=== PATIENT | female | born 1995 | race Caucasian/White ===

== ENCOUNTER 2019-12-06 13:21 | Emergency (ER) | payer OTHER, SELFPAY ==
[2019-12-06 13:31] VITALS: BP 124/76; PULSE 81; RESP 16; TEMP 37.1; O2SAT 99
--- NOTE | 2019-12-06 14:08 | ED.URI ---
HPI - URI/Sore Throat General Chief Complaint: Upper Respiratory Infection Stated Complaint: Sore Throat Time Seen by Provider: 12/06/19 14:08 Source: patient, family and RN notes reviewed Mode of arrival: ambulatory Limitations: no limitations History of Present Illness HPI Narrative: 24-year-old female who presents to [facility] with complaints of sore throat, rhinorrhea and nasal congestion since Monday with ear pain that has resolved. Patient states that she does have a history of strep throat in the past with similar symptoms.Patient denies any shortness of breath, or any wheezing, respirations even and non labored. Patient has red swollen tonsils,uvula midline, is able to swallow without difficulty no trismus noted, voice is muffled sounding. MD elicited complaint: fever, sore throat, rhinorrhea and nasal congestion Pertinent past history: other (strep throat) Related Data Home Medications Medication Instructions Recorded Confirmed Implanon Control Implant 12/06/19 Allergies Allergy/AdvReac Type Severity Reaction Status Date / Time No Known Allergies Allergy Unknown Verified 07/24/19 14:57 Review of Systems Review of Systems: Narrative: CONSTITUTIONAL: positive fever, chills, or sweats. EYES: Denies visual changes, redness, or discharge. ENT: positive rhinorrhea, congestion, sore throat, no otalgia presently. CARDIOVASCULAR: Denies chest pain, palpitations, or edema. RESPIRATORY: positive cough no dyspnea. GASTROINTESTINAL: Denies abdominal pain, nausea, vomiting, or diarrhea. GENITOURINARY: Denies dysuria or hematuria. SKIN: Denies rash or itching. MUSCULOSKELETAL: Denies back pain, joint pain, or myalgia. NEUROLOGIC: Denies headache, numbness, or weakness. PSYCHIATRIC: Denies anxiety or depression. All systems reviewed & are unremarkable except as noted in HPI and below PMFSH Past Medical History Medical History (Updated 12/06/19 @ 14:20 by Haley Streeter NP) Strep pharyngitis Social History Social History (Updated 12/06/19 @ 16:40 by Haley Streeter NP) Smoking status: Never smoker Living arrangements: with family Gender identity (if verbalized by the patient): Female Comments At time of signature, agree with nursing past medical, social history. There is no relevant family history pertinent to the presenting complaint Exam Narrative: Exam Narrative: GENERAL: Well-appearing, well-nourished, and in no acute distress. HEAD: Normocephalic, atraumatic. EYES: PERRLA and EOMI. ENT: Nares red, clear rhinorrhea no epistaxis. Mucous membranes moist. TM's normal with good light reflex, throat red with tonsils enlarged, no lesions or exudate, voice muffled, painful swallowing. NECK: Supple.lymphadenopathy CHEST: Clear to auscultation. No respiratory distress.SAO2 99% on room air. HEART: Regular rate and rhythm. No murmur heard. Normal peripheral pulses. ABDOMEN: Soft, nontender, nondistended, normal active bowel sounds. EXTREMITIES: Normal range of motion. No edema. SKIN: Warm, dry, no rash. NEURO: No focal deficits. Alert and oriented x3. Course Vital Signs Vital signs: Vital Signs Temperature 37.1 C 12/06/19 13:31 Pulse Rate 81 12/06/19 13:31 Respiratory Rate 16 12/06/19 13:31 Blood Pressure 124/76 12/06/19 13:31 Pulse Oximetry 99 12/06/19 13:31 Temperature 37.1 C 12/06/19 13:31 Pulse Rate 81 12/06/19 13:31 Respiratory Rate 16 12/06/19 13:31 Blood Pressure 124/76 12/06/19 13:31 Pulse Oximetry 99 12/06/19 13:31 MDM - URI/Sore Throat Differential Diagnosis Differential diagnosis: Likely upper respiratory infection, sinusitis and pharyngitis Medical Records Attestation: I reviewed the patient's medical records. Lab Data Attestation: I reviewed the patient's lab results. Lab results narrative: Strep screen negative Labs: Strep Screen Presumptive Negative *(Reference Range: Negative)* Critical Care Time C
== END 2019-12-06 14:25 | disposition home or self-care (01) ==
PROVIDERS: Emergency Provider Registered Nurse; PCP Nurse Practitioner Family
DX: J03.90 Acute tonsillitis, unspecified (principal); J06.9 Acute upper respiratory infection, unspecified
CPT/HCPCS: 87081; 87880; 99213; G0463

== ENCOUNTER 2020-04-30 14:36 | Emergency (ER) | payer OTHER, SELFPAY ==
[2020-04-30 14:46] VITALS: BP 123/74; PULSE 105; RESP 16; TEMP 37.2; O2SAT 98
--- NOTE | 2020-04-30 14:48 | ED.GENADULT ---
HPI - General Adult General Chief complaint: Upper Respiratory Infection Stated complaint: Sore throat Time Seen by Provider: 04/30/20 14:48 Source: patient Mode of arrival: ambulatory Limitations: no limitations History of Present Illness HPI narrative: 24-year-old female patient presents to the [facility] with complaints of sore throat for the past 3 days. Patient states that she noticed some white spots in the back of her throat today. Denies any fevers, runny nose or coughing, chest pain or shortness of breath. Patient states she has had a little discomfort to the right ear. Related Data Home Medications Medication Instructions Recorded Confirmed Iud 04/30/20 Allergies Allergy/AdvReac Type Severity Reaction Status Date / Time No Known Allergies Allergy Unknown Verified 07/24/19 14:57 Review of Systems Review of Systems: Narrative: CONSTITUTIONAL: Denies fever, chills, or sweats. EYES: Denies visual changes, redness, or discharge. ENT: Denies rhinorrhea, congestion, positive sore throat, and right otalgia. CARDIOVASCULAR: Denies chest pain, palpitations, or edema. RESPIRATORY: Denies cough or dyspnea. GASTROINTESTINAL: Denies abdominal pain, nausea, vomiting, or diarrhea. GENITOURINARY: Denies dysuria or hematuria. SKIN: Denies rash or itching. MUSCULOSKELETAL: Denies back pain, joint pain, or myalgia. NEUROLOGIC: Denies headache, numbness, or weakness. PSYCHIATRIC: Denies anxiety or depression. [facility] Past Medical History Medical History Strep pharyngitis Social History Social History Smoking status: Never smoker Gender identity (if verbalized by the patient): Female Comments At the time of my signature I agree with nursing past medical history, surgical, social, and family history. There is no relevant family history pertinent to the presenting complaint. Exam Narrative: Exam Narrative: GENERAL: Well-appearing, well-nourished, and in no acute distress. HEAD: Normocephalic, atraumatic. No tenderness noted to frontal maxillary sinuses on palpation EYES: PERRLA and EOMI. ENT: Nares clear, no rhinorrhea or epistaxis. Mucous membranes moist. Posterior pharynx with 3+ tonsil enlargement on the right side 1+ tonsil enlargement on the left. Patient does have bilateral white exudates noted on bilateral sides. Erythema noted to bilateral sides. Bilateral TMs are clear with no erythema or foreign bodies in the canal. NECK: Supple. No lymphadenopathy CHEST: Clear to auscultation. No respiratory distress. HEART: Regular rate and rhythm. No murmur heard. Normal peripheral pulses. ABDOMEN: Soft, nontender, nondistended, normal active bowel sounds. EXTREMITIES: Normal range of motion. No edema. SKIN: Warm, dry, no rash. NEURO: No focal deficits. Alert and oriented x3. Course Vital Signs Vital signs: Vital Signs Temperature 37.2 C 04/30/20 14:46 Pulse Rate 105 H 04/30/20 14:46 Respiratory Rate 16 04/30/20 14:46 Blood Pressure 123/74 04/30/20 14:46 Pulse Oximetry 98 04/30/20 14:46 Temperature 37.2 C 04/30/20 14:46 Pulse Rate 105 H 04/30/20 14:46 Respiratory Rate 16 04/30/20 14:46 Blood Pressure 123/74 04/30/20 14:46 Pulse Oximetry 98 04/30/20 14:46 Vital signs reviewed. Medical Decision Making Differential Diagnosis Differential Diagnosis: Differential diagnosis: Viral pharyngitis, pharyngitis, group A strep, infectious mononucleosis, gonococcal pharyngitis, exudative pharyngitis, oral candidiasis. Chronic allergies, postnasal drip, GERD, abscess formation, but glottitis, retropharyngeal abscess formation, or airway obstruction. Discussed with patient that her strep test today is negative however because she has a lot of exudates and swelling especially on the right side we will go ahead and prescribe her an antibiotic just to cover any type of bacteria that cou
== END 2020-04-30 15:12 | disposition home or self-care (01) ==
PROVIDERS: Emergency Provider Nurse Practitioner Family
DX: J03.90 Acute tonsillitis, unspecified (principal)
CPT/HCPCS: 87081; 87880; 99213; G0463

== ENCOUNTER 2021-07-02 11:56 | Emergency (ER) | payer OTHER, SELFPAY ==
[2021-07-02 12:11] VITALS: BP 117/69; PULSE 110; RESP 18; TEMP 36.2; O2SAT 99
[2021-07-02 12:54] LABS: Basophils Absolute Auto 0.1 K/mm3 (0.0-0.1); Basophils Percent Auto 0.4 % (0.2-1.2); Eosinophils Absolute Auto 0.1 K/mm3 (0-0.3); Hematocrit 40.6 % (37.0-47.0); Hemoglobin 12.7 g/dL (12.0-15.0); Immature Granulocyte Absolute 0.05 K/mm3 (0.00-0.031); Immature Granulocyte Percent A 0.4 % (0-0.5); Lymphocytes Absolute Auto 3.15 K/mm3 (0.9-3.2); Lymphocytes Percent Auto 28.2 % (18.3-44.2); Mean Corpuscular HGB Conc 31.3 g/dl (32-36); Mean Corpuscular Hemoglobin 26.6 pg (26-34); Mean Corpuscular Volume 85.1 fl (80-100); Mean Platelet Volume 10.5 fl (7.4-10.4); Monocytes Absolute Auto 0.7 K/mm3 (0.1-0.6); Monocytes Percent Auto 6.3 % (2.6-8.5); Neutrophils Absolute Auto 7.1 K/mm3 (1.3-6.7); Neutrophils Percent Auto 63.7 % (45.5-73.1); Platelet Count Result 302 k/mm3 (150-375); Red Blood Count 4.77 M/mm3 (4.2-5.4); Red Cell Distribution Width 15.1 % (11.5-14.5); White Blood Count 11.2 K/mm3 (4.5-10.0)
[2021-07-02 13:24] LABS: Beta HCG Quantitative < 2.39 mIU/ML
--- NOTE | 2021-07-02 15:59 | PC.NURSE ---
no answer x1 at [facility]
== END 2021-07-02 15:59 | disposition left against medical advice (07) ==
PROVIDERS: Emergency Provider Emergency Medicine
DX: O26.851 Spotting complicating pregnancy, first trimester (principal); Z3A.01 Less than 8 weeks gestation of pregnancy
CPT/HCPCS: 36415; 84702; 85025; 85461; 99199

== ENCOUNTER 2021-12-31 08:37 | Emergency (ER) | payer OTHER, SELFPAY ==
--- NOTE | ~2021-12-31 | US_ITS ---
EXAMINATION: US OB <=14 wk fetus w TV DATE: 12/31/2021 10:29 INDICATION: Right adnexal pain. TECHNIQUE: Real-time transabdominal and transvaginal pelvic ultrasound was performed. COMPARISON: None. FINDINGS: TRANSABDOMINAL ULTRASOUND: The uterus measures 8.7 x 5.6 x 5.2 cm. TRANSVAGINAL ULTRASOUND: There is a cyst with mean diameter of 4 mm in the endometrial complex with i ntradecidual sign. If this finding is a gestational sac, and correlates with an estimated gestational age of 5 weeks and 1 day +/- 3 days. No yolk sac or pole is identified. The right ovary measu res 1.9 x 1.4 x 1.4 cm. The left ovary measures 2.9 x 2.0 x 1.6 cm. There is trace free fluid in the pelvis. IMPRESSION: 1. Cyst in the endometrial complex that is most likely a gestational sac with estimated date of deli very of 09/01/2022. Spontaneous and ectopic are not excluded. Serial beta-hCGs are recommended. Reviewed, dictated and finalized at location A. LEAD IMPRESSION: 1. Cyst in the endometrial complex that is most likely a gestational sac with estimated date of delivery of 09/01/2022. Spontaneous and ectopic preg bart are not excluded. Serial beta-hCGs are recommended.
--- NOTE | ~2021-12-31 | US_ITS ---
EXAMINATION: US right upper quadrant EXAM DATE: 12/31/2021 11:11 INDICATION: RUQ pain . TECHNIQUE: Multiple grayscale and Doppler images of the abdomen right upper quadrant were obtained (b y a technologist who performed the scan) and subsequently reviewed. There is no prior study for eran mtz. FINDINGS: The pancreatic head and body are normal in appearance. The pancreatic tail is not visualized. The l iver has normal echogenicity and contour. There are no focal liver lesions identified. There is no evidence of intrahepatic biliary duct dilation. Portal venous flow was seen in the hepatopedal, nor mal direction and has normal Doppler waveform. No right-sided hydronephrosis. Common bile duct measures 3 mm, which is normal. Mildly thickened gallbladder wall measurement at 4 m m. Differential diagnosis includes interstitial edema, chronic liver disease, acute or chronic cholec ystitis. No sonographic evidence of pericholecystic fluid. There is cholelithiasis. Technologist performing exam reports patient did not demonstrate sonographic Radford's sign. Please note that this sign is less reliable in patients who have received pain medication. IMPRESSION: Cholelithiasis. Nonspecific gallbladder wall thickening, without sonographic Radford sign demonstrated. Clinical correlation, consider HIDA scan if indicated. Reviewed, dictated and finalized at location A. PERFORMANCE ENGINEER IMPRESSION: Cholelithiasis. Nonspecific gallbladder wall thickening, without so nographic Radford sign demonstrated. Clinical correlation, consider HIDA scan if indicated.
[2021-12-31 09:00] VITALS: BP 111/84; PULSE 83; RESP 18; TEMP 36.4; O2SAT 100
[2021-12-31 10:09] LABS: Basophils Percent Auto 0.3 % (0.2-1.2); Eosinophils Absolute Auto 0.1 K/mm3 (0-0.3); Eosinophils Percent Auto 1.2 % (0-4.4); Hematocrit 38.9 % (37.0-47.0); Hemoglobin 12.3 g/dL (12.0-15.0); Immature Granulocyte Absolute 0.05 K/mm3 (0.00-0.031); Immature Granulocyte Percent A 0.5 % (0-0.5); Lymphocytes Absolute Auto 2.54 K/mm3 (0.9-3.2); Lymphocytes Percent Auto 27.8 % (18.3-44.2); Mean Corpuscular HGB Conc 31.6 g/dl (32-36); Mean Corpuscular Hemoglobin 26.5 pg (26-34); Mean Corpuscular Volume 83.8 fl (80-100); Mean Platelet Volume 10.4 fl (7.4-10.4); Monocytes Absolute Auto 0.7 K/mm3 (0.1-0.6); Monocytes Percent Auto 7.4 % (2.6-8.5); Neutrophils Absolute Auto 5.7 K/mm3 (1.3-6.7); Neutrophils Percent Auto 62.8 % (45.5-73.1); Platelet Count Result 290 k/mm3 (150-375); Red Blood Count 4.64 M/mm3 (4.2-5.4); White Blood Count 9.1 K/mm3 (4.5-10.0)
[2021-12-31 10:18] LABS: Prothrombin Time 12.5 Seconds (11.1-14.7)
[2021-12-31 10:19] LABS: Partial Thromboplastin Time 26.9 SECONDS (22.3-36.8)
[2021-12-31 10:23] LABS: Alanine Aminotransferase 20 U/L (4-35); Albumin Level 4.2 g/dL (3.5-5.1); Alkaline Phosphatase 85 U/L (38-126); Anion Gap 6 mmol/L (8-16); Aspartate Amino Transferase 25 U/L (14-36); Bilirubin,Total 0.4 mg/dL (0.2-1.3); Blood Urea Nitrogen 7 mg/dL (7-17); Calcium 8.8 mg/dL (8.4-10.2); Carbon Dioxide 27 mmol/L (22-30); Chloride 104 mmol/L (98-107); Estimated CRCL calculation 160 ml/min; Estimated Glomerular Filt Rate > 60; Glucose 94 mg/dL (65-110); Potassium 3.8 mmol/L (3.4-5.0); Sodium 137 mmol/L (137-145)
[2021-12-31 10:47] LABS: Add Urine Microscopic? YES; Appearance Urine Clear (Clear); Bilirubin Urine Negative (Negative); Blood Urine Negative (Negative); Color Urine Yellow (Yellow); Glucose Urine UA Negative (Negative); Ketones Urine Negative (Negative); Leukocyte Esterase Ur 1+ LEU/UL (Negative); Mucus Urine Rare /lpf; Nitrate Urine Negative (Negative); Protein Urine Negative (Negative); RBC Urine 0-2 /hpf (0-2); Specific Grav Ur 1.019 (1.001-1.035); Squamous Epithelial Cell Urine Occasional /hpf (Few); Urobilinogen Urine Negative mg/dL (<2.0); WBC Urine 0-3 /hpf
[2021-12-31 12:38] VITALS: BP 127/86; PULSE 63; RESP 16; O2SAT 94
--- NOTE | 2021-12-31 12:56 | ED.GENADULT ---
HPI - General Adult General Chief complaint: Back Pain/Injury Stated complaint: rib and back pain Time Seen by Provider: 12/31/21 09:41 History of Present Illness HPI narrative: Patient is a 26-year-old female who presents ER with abdominal pain. Right-sided in her upper abdomen. Moved to her right shoulder. Began this morning and is more intense than typical. She has been having intermittently over the last couple weeks. Unsure if it so she was eating. No fevers or chills or sweats. No vomiting. Incidentally patient found to be upon arrival here. She is a SAB 3. LMP October 2021. Unsure of actual dates. She sees Dr. Galindo who has recently left the area. No vaginal bleeding or discharge. Related Data Home Medications Medication Instructions Recorded Confirmed metformin mg 12/31/21 omeprazole 12/31/21 phentermine mg 12/31/21 Allergies Allergy/AdvReac Type Severity Reaction Status Date / Time No Known Allergies Allergy Unknown Verified 07/24/19 14:57 Review of Systems Review of Systems: All systems reviewed & are unremarkable except as noted in HPI and below Constitutional: Constitutional: Denies chills, Denies fever(s) and Denies weakness ENT: Denies nasal congestion and Denies sore throat Cardiovascular: Cardiovascular: Denies chest pain, Denies rapid heart rate and Denies radiating jaw, neck or arm pain Respiratory: Respiratory: Denies cough and Denies dyspnea Gastrointestinal: Gastrointestinal: Reports abdominal pain, Denies constipation, Denies diarrhea, Reports nausea and Denies vomiting Genitourinary: Genitourinary: Denies abnormal vaginal bleeding, Denies hematuria, Denies nocturia, Denies dysuria, Denies flank pain and Denies vaginal discharge PMFSH Past Medical History Medical History (Updated 12/31/21 @ 13:05 by Chip Perkins MD) GERD (gastroesophageal reflux disease) Strep pharyngitis Surgical History Surgical History (Updated 12/31/21 @ 13:05 by Chip Perkins MD) No pertinent past surgical history Social History Social History Smoking status: Never smoker Gender identity (if verbalized by the patient): Female Exam Narrative: GENERAL: Well-appearing, well-nourished, and in no acute distress. HEAD: Normocephalic, atraumatic. EYES: PERRL and EOMI. ENT: Mucous membranes moist. CHEST: Clear to auscultation. No respiratory distress. HEART: Regular rate and rhythm. Normal peripheral pulses. ABDOMEN: Soft, tender palpation right lower quadrant without guarding, nondistended. EXTREMITIES: Normal range of motion. No edema. SKIN: Warm, dry, no rash. NEURO: Alert and oriented x3. Course Course Emergency Course: Patient informed of . Appears to be an IUP. Contacted Dr. Kaplan who is on-call for Dr. Medrano's office. Recommends close follow-up. Patient educated about low-fat diet in terms of her cholelithiasis. Patient has no right upper quadrant tenderness or guarding. Vital Signs Vital signs: Vital Signs Temperature 97.6 F 12/31/21 09:00 Pulse Rate 83 12/31/21 09:00 Respiratory Rate 18 12/31/21 09:00 Blood Pressure 111/84 12/31/21 09:00 Pulse Oximetry 100 12/31/21 09:00 Temperature 97.6 F 12/31/21 09:00 Pulse Rate 63 12/31/21 12:38 Respiratory Rate 16 12/31/21 12:38 Blood Pressure 127/86 12/31/21 12:38 Pulse Oximetry 94 12/31/21 12:38 Medical Decision Making Vital Signs Vital Signs: Vital Signs Temperature 97.6 F 12/31/21 09:00 Pulse Rate 83 12/31/21 09:00 Respiratory Rate 18 12/31/21 09:00 Blood Pressure 111/84 12/31/21 09:00 Pulse Oximetry 100 12/31/21 09:00 Temperature 97.6 F 12/31/21 09:00 Pulse Rate 63 12/31/21 12:38 Respiratory Rate 16 12/31/21 12:38 Blood Pressure 127/86 12/31/21 12:38 Pulse Oximetry 94 12/31/21 12:38 Lab Data Result diagrams: 12/31/21 10:03 12/31/21
== END 2021-12-31 13:39 | disposition home or self-care (01) ==
PROVIDERS: Emergency Provider Emergency Medicine; PCP Physician Assistant
DX: O99.611 Diseases of the digestive system complicating pregnancy, first trimester (principal); K80.20 Calculus of gallbladder without cholecystitis without obstruction; K21.9 Gastro-esophageal reflux disease without esophagitis; Z3A.00 Weeks of gestation of pregnancy not specified
CPT/HCPCS: 36415; 76705; 76801; 76817; 80053; 81001; 81025; 84702; 85025; 85610; 85730; 99284

== ENCOUNTER 2022-06-02 09:59 | Outpatient (CLI) | payer OTHER, SELFPAY ==
[2022-06-02 11:32] LABS: Basophils Percent Auto 0.3 % (0.2-1.2); Eosinophils Absolute Auto 0.1 K/mm3 (0-0.3); Eosinophils Percent Auto 0.4 % (0-4.4); Hematocrit 39.1 % (37.0-47.0); Hemoglobin 12.6 g/dL (12.0-15.0); Immature Granulocyte Absolute 0.06 K/mm3 (0.00-0.031); Immature Granulocyte Percent A 0.5 % (0-0.5); Lymphocytes Absolute Auto 2.63 K/mm3 (0.9-3.2); Lymphocytes Percent Auto 22.6 % (18.3-44.2); Mean Corpuscular HGB Conc 32.2 g/dl (32-36); Mean Corpuscular Hemoglobin 26.8 pg (26-34); Mean Corpuscular Volume 83.2 fl (80-100); Mean Platelet Volume 10.6 fl (7.4-10.4); Monocytes Absolute Auto 0.6 K/mm3 (0.1-0.6); Monocytes Percent Auto 5.3 % (2.6-8.5); Neutrophils Absolute Auto 8.3 K/mm3 (1.3-6.7); Neutrophils Percent Auto 70.9 % (45.5-73.1); Platelet Count Result 279 k/mm3 (150-375); White Blood Count 11.7 K/mm3 (4.5-10.0)
[2022-06-02 11:43] LABS: Glucose 1 Hour PP 50gm Dose 98 mg/dL
[2022-06-02 12:25] LABS: HIV 1/2 Ab P24 Ag Result Negative (Negative)
[2022-06-02 12:31] LABS: Hepatitis B Surface Antigen Negative (Negative); Rubella IgG Antibody 72.7 IU/ML
[2022-06-02 12:34] LABS: Rapid Plasma Reagin Non-Reactive (NonReactive)
== END 2022-06-02 10:00 | disposition home or self-care (01) ==
LOC: ANHLAB 10:02
PROVIDERS: PCP Physician Assistant; Visit Provider Obstetrics & Gynecology
DX: N94.89 Other specified conditions associated with female genital organs and menstrual cycle (principal)
CPT/HCPCS: 36415; 82947; 84702; 85025; 86592; 86644; 86703; 86747; 86762; 86787; 86850; 86900; 86901; 87086; 87340; G0432

== ENCOUNTER 2022-08-25 05:47 | Observation (INO) | payer OTHER, SELFPAY ==
[2022-08-25 06:16] VITALS: BP 112/71; PULSE 91
[2022-08-25 06:23] VITALS: BMI 34.1
--- NOTE | 2022-08-25 06:23 | OBADM ---
This patient, Nancy Millard, admitted to the OB room OB Post 116 for observation. Patient/family oriented to hospital policies and general routines including ID bracelet, bed and alarms, visiting hours, pain management, procedures, bathroom and other care routines, personal items, smoking policy, room service/diet, and visiting hours. Patient/Family are encouraged to report perceived risks to care and to ask questions if they do not understand what they are told or what they should do. Pt. presents with reports of pink spotting when she woke up at 0500 to use the bathroom. She states she did not see any bleeding after going to the bathroom after arrival on unit. Pt. also reports DFM, but that she is now feeling baby move since arriving in her room.
[2022-08-25 06:31] VITALS: BP 106/67; PULSE 91
[2022-08-25 06:46] VITALS: BP 109/69; PULSE 81
--- NOTE | 2022-08-25 06:47 | PC.NURSE ---
0645--Report to Dr. Altamirano, order to DC and have pt. keep appointment for Monday.
--- NOTE | 2022-08-25 07:52 | PM.OBTRLD ---
OB - Triage/Final Diagnosis Visit Information Date of evaluation: 08/25/22 Reason for evaluation: other (bleeding) Comments/Additional reasons for admission: I have assessed the risk for this patient, Nancy Millard, and determined that she would benefit from observation care. Evaluation Vital signs: Vital Signs - 24 hr 08/25/22 06:16 08/25/22 06:31 08/25/22 06:46 Pulse Rate 91 91 81 Blood Pressure 112/71 106/67 109/69
== END 2022-08-25 07:08 | disposition home or self-care (01) ==
PROVIDERS: Admitting Provider Student in an Organized Health Care Education/Training Program; PCP Physician Assistant; Visit Provider Student in an Organized Health Care Education/Training Program
DX: O46.8X3 Other antepartum hemorrhage, third trimester (principal); O36.8130 Decreased fetal movements, third trimester, not applicable or unspecified; Z3A.29 29 weeks gestation of pregnancy
CPT/HCPCS: G0378; G0379

== ENCOUNTER 2022-08-27 07:45 | Outpatient (CLI) | payer OTHER, SELFPAY ==
[2022-08-27 08:56] LABS: Basophils Percent Auto 0.2 % (0.2-1.2); Eosinophils Absolute Auto 0.1 K/mm3 (0-0.3); Eosinophils Percent Auto 0.6 % (0-4.4); Hematocrit 36.9 % (37.0-47.0); Hemoglobin 12.1 g/dL (12.0-15.0); Immature Granulocyte Absolute 0.12 K/mm3 (0.00-0.031); Lymphocytes Absolute Auto 2.31 K/mm3 (0.9-3.2); Lymphocytes Percent Auto 18.5 % (18.3-44.2); Mean Corpuscular HGB Conc 32.8 g/dl (32-36); Mean Corpuscular Hemoglobin 28.7 pg (26-34); Mean Corpuscular Volume 87.6 fl (80-100); Mean Platelet Volume 10.5 fl (7.4-10.4); Monocytes Absolute Auto 0.7 K/mm3 (0.1-0.6); Monocytes Percent Auto 5.9 % (2.6-8.5); Neutrophils Absolute Auto 9.2 K/mm3 (1.3-6.7); Neutrophils Percent Auto 73.8 % (45.5-73.1); Platelet Count Result 256 k/mm3 (150-375); Red Blood Count 4.21 M/mm3 (4.2-5.4); Red Cell Distribution Width 13.3 % (11.5-14.5); White Blood Count 12.5 K/mm3 (4.5-10.0)
[2022-08-27 09:11] LABS: Glucose 1 Hour PP 50gm Dose 113 mg/dL
[2022-08-27 09:52] LABS: HIV 1/2 Ab P24 Ag Result Negative (Negative)
== END 2022-08-27 07:46 | disposition home or self-care (01) ==
PROVIDERS: PCP Physician Assistant; Visit Provider Obstetrics & Gynecology
DX: Z34.90 Encounter for supervision of normal pregnancy, unspecified, unspecified trimester (principal); Z3A.00 Weeks of gestation of pregnancy not specified
CPT/HCPCS: 36415; 82947; 85025; 86703; G0432

== ENCOUNTER 2022-11-02 16:15 | Inpatient (IN) | payer OTHER, SELFPAY ==
[2022-11-02] VITALS (62 sets, daily range): BP systolic 71–201; BP diastolic 39–183; PULSE 55–148; RESP 16; TEMP 36.3–36.6; O2SAT 57–100; BMI 37.4
--- NOTE | 2022-11-02 16:38 | LDADM ---
This patient, Nancy Millard, was admitted to Labor/Delivery/Recovery 108 on 11/02/22 at 16:15. Plans for labor, pain management and were discussed with patient. Patient/family oriented to hospital policies and general routines including ID bracelet, bed and alarms, visiting hours, pain management, procedures, bathroom and other care routines, personal items, smoking policy, room service/diet and guest tray routines, infant security routines, and visiting hours. Patient/Family are encouraged to report perceived risks to care and to ask questions if they do not understand what they are told or what they should do. See OBIX for further documentation.
[2022-11-02 16:56] LABS: Basophils Absolute Auto 0.1 K/mm3 (0.0-0.1); Basophils Percent Auto 0.4 % (0.2-1.2); Eosinophils Absolute Auto 0.1 K/mm3 (0-0.3); Eosinophils Percent Auto 0.4 % (0-4.4); Hematocrit 35.5 % (37.0-47.0); Hemoglobin 11.6 g/dL (12.0-15.0); Immature Granulocyte Absolute 0.18 K/mm3 (0.00-0.031); Immature Granulocyte Percent A 0.8 % (0-0.5); Lymphocytes Absolute Auto 2.31 K/mm3 (0.9-3.2); Lymphocytes Percent Auto 10.7 % (18.3-44.2); Mean Corpuscular HGB Conc 32.7 g/dl (32-36); Mean Corpuscular Volume 82.6 fl (80-100); Mean Platelet Volume 10.8 fl (7.4-10.4); Monocytes Absolute Auto 1.5 K/mm3 (0.1-0.6); Monocytes Percent Auto 7.1 % (2.6-8.5); Neutrophils Absolute Auto 17.5 K/mm3 (1.3-6.7); Neutrophils Percent Auto 80.6 % (45.5-73.1); Platelet Count Result 285 k/mm3 (150-375); Red Cell Distribution Width 13.5 % (11.5-14.5); White Blood Count 21.7 K/mm3 (4.5-10.0)
[2022-11-02] MEDS: DINOPROSTONE 10 MG VAG INSERT VAGINAL (17:02)
--- NOTE | 2022-11-02 18:05 | WPDANESEPP ---
Anes - Eval Pre Procedure Procedure: Labor epidural Date/Time: 11/02/22 18:05 Pre Op Diagnosis: iol Patient Data Age: 27 Gender: F Height: 1.65 m Weight: 102 kg Last Vital Signs Pulse 100 11/02/22 18:00 BP 121/71 11/02/22 18:00 O2 Del Method Room Air 11/02/22 16:36 Allergies Allergy/AdvReac Type Severity Reaction Status Date / Time No Known Allergies Allergy Unknown Verified 11/02/22 16:43 Home Medications Medication Instructions Recorded Confirmed Type vitamins-iron fumarate 65 1 tablet PO DAILY 04/06/22 11/02/22 History mg iron-folic acid 1 mg tablet alprazolam 0.25 mg tablet (Xanax) 0.25 mg PO TID PRN anxiety #30 tabs 10/03/22 11/02/22 Rx Laboratory Tests 11/02/22 11/02/22 11/02/22 16:28 16:28 16:28 WBC 21.7 K/mm3 H K/mm3 (4.5-10.0) RBC 4.30 M/mm3 M/mm3 (4.2-5.4) Hgb 11.6 g/dL L g/dL (12.0-15.0) Hct 35.5 % L % (37.0-47.0) MCV 82.6 fl fl (80-100) MCH 27.0 pg pg (26-34) MCHC 32.7 g/dl g/dl (32-36) RDW 13.5 % % (11.5-14.5) Plt Count 285 k/mm3 k/mm3 (150-375) MPV 10.8 fl H fl (7.4-10.4) Immature Gran % (Auto) 0.8 % H % (0-0.5) Neut % (Auto) 80.6 % H % (45.5-73.1) Lymph % (Auto) 10.7 % L % (18.3-44.2) [place] % (Auto) 7.1 % % (2.6-8.5) Eos % (Auto) 0.4 % % (0-4.4) Baso % (Auto) 0.4 % % (0.2-1.2) Lymph # (Auto) 2.31 K/mm3 K/mm3 (0.9-3.2) [place] # (Auto) 1.5 K/mm3 H K/mm3 (0.1-0.6) Eos # (Auto) 0.1 K/mm3 K/mm3 (0-0.3) Baso # (Auto) 0.1 K/mm3 K/mm3 (0.0-0.1) Abs Immat Gran (auto) 0.18 K/mm3 H K/mm3 (0.00-0.031) Absolute Neuts (auto) 17.5 K/mm3 H K/mm3 (1.3-6.7) Absolute Nucleated RBC 0.0 K/mm3 K/mm3 (0.0-0.012) Nucleated RBC % 0.0 % % (0.0-0.2) RPR Pending Blood Type O Positive Antibody Screen Negative Patient hx anesthesia problems: none Family hx anesthesia problems: none Results Review: All pre-operative results and documents have been reviewed as part of the pre-operative evaluation. [facility], LAT[facility] Past Medical History Medical History (Updated 11/02/22 @ 18:08 by Brenda Salmon CRNA) Anxiety Bipolar 1 disorder Chlamydia Depression Depression Encounter for IUD insertion 03/18/20 Paragard insertion Encounter for IUD removal 03/25/21 Paragard removal GERD (gastroesophageal reflux disease) Marijuana use Nexplanon insertion 10/04/19 Nexplanon insertion Nexplanon removal 01/01/20 Nexplanon removal Strep pharyngitis Suppression of menstruation Surgical History Surgical History No pertinent past surgical history Family History Family History Mother No problems noted. Grandparent Breast cancer maternal grandmother Other Breast cancer maternal aunt Social History Social History Smoking status: Light tobacco smoker Second hand tobacco smoke exposure: Yes Smoking end date: 07/23/22 Alcohol intake: never Substance use: never Substance use type: marijuana Last use: 02/20/2022 Lack of Transportation: No Lack of Food: Never True Current Housing: I Have Housing Concerned About Future Housing: No Difficulty Paying Gas/Electric Bills: No Difficulty Paying for Meds: No Currently Unemployed: No Education: High School Diploma/GED Difficulty w/ Childcare or Family Care: No 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
[2022-11-02] MEDS: LACTATED RINGERS 1,000 ML 125 ML IV CONT ×2 (21:17→22:28)
[2022-11-02] MEDS: PHENYLEPHRINE 1,000 MCG/10 ML SYRINGE 100 MCG IV PUSH (22:05)
--- NOTE | 2022-11-02 23:17 | PM.OBPRVD ---
OB - Delivery Note Procedure Delivery date: 11/02/22 Procedure: Patient pushed for a spontaneous vaginal delivery. The fetus was delivered atraumatically and placed on the maternal abdomen. The cord was clamped and cut after 1 minute of life. The cord was double clamped and cut and a segment of cord was collected for cord gases. Cord blood was collected for blood type and Coomb's testing. The placenta delivered spontaneously and was noted to be intact. The perineum was inspected and there were no lacerations noted. The uterus was firm and good hemostasis was noted. The patient and fetus were stable in the delivery room. Delivery monitor: External FHT Route of delivery: Episiotomy description: None Laceration Description: None Specimen: No Quantitative Blood Loss (ml): 200 Anesthesia type: Epidural Disposition: Floor () Complications: No immediate complications [place] Baby Date of : 11/02/22 Time of : 23:04 Weeks of gestation at delivery: 39 gender: Male Weight (pounds): 6 Weight (ounces): 4 presentation: vertex Placenta delivery description: Spontaneous Cord Vessel Description: 3 Vessels score one minute: 8 score five minutes: 9 AMG Delivery Billing Delivery Delivery: Delivery Charge
[2022-11-03] VITALS (24 sets, daily range): BP systolic 109–132; BP diastolic 54–75; PULSE 83–121; RESP 16–18; TEMP 36.3–37.2; O2SAT 94–100
[2022-11-03] MEDS: OXYTOCIN 30 UNITS/NS 500 ML 30 UNITS/500 ML BAG 125 UNITS IV CONT (00:06)
[2022-11-03] MEDS: BENZOCAINE 20% AER SPR (*SP) 56 GM CAN 1 SPRAY TOPICAL (01:21)
[2022-11-03] MEDS: WITCH HAZEL 40 PADS 1 PAD TOPICAL (01:21)
--- NOTE | 2022-11-03 01:56 | OBPPTRN ---
Patient transferred to post room #281 via W/C. Support person present. Oriented to unit, room, information board, rooming in, admission packet and security measures. Patient verbalizes understanding.
[2022-11-03] MEDS: IBUPROFEN 600 MG TABLET PO ×3 (03:07→16:29)
[2022-11-03] MEDS: ACETAMINOPHEN 325 MG TABLET 650 MG PO ×2 (04:54→19:38)
[2022-11-03 05:20] LABS: Hematocrit 31.9 % (37.0-47.0); Hemoglobin 10.6 g/dL (12.0-15.0)
[2022-11-03] MEDS: MULTIVIT/MIN/PREN/FOL AC/IRON TABLET 1 TAB PO (08:51)
[2022-11-03] MEDS: DOCUSATE SODIUM 100 MG CAPSULE PO ×2 (08:51→16:29)
[2022-11-03 10:40] LABS: Rapid Plasma Reagin Non-Reactive (NonReactive)
--- NOTE | 2022-11-03 10:40 | PC.NURSE ---
Breast pump provided due to separation from infant. Instructions given on cleaning, care, usage, that there should be no pain, pumping schedule for milk production, collection, and storage of human milk. Patient was assessed for correct placement, flange size, to pump for comfort and nipple stretching/stimulation for adequate milk production every 3 hours (8 times in 24 hours) 1-2 times at night. Mother voiced understanding.
--- NOTE | 2022-11-03 12:30 | PC.NURSE ---
Epidural catheter removed with tip intact, band-aid applied.
--- NOTE | 2022-11-03 13:15 | WPDANLDPN2 ---
Anes-Prog Note L&D Date/Time: 11/03/22 13:15 Comfortable throughout: labor and delivery Neuraxial method: epidural Epidural/Spinal procedure site: clean & non-tender Neuro status: Neuro function grossly intact. Cardiovascular status: normal Respiratory status: normal Airway patency: baseline Mental status: baseline Post-Op hydration status: normal Vital Signs: Last Vital Signs Temp 36.5 C 11/03/22 11:58 Pulse 88 11/03/22 11:58 Resp 16 11/03/22 11:58 BP 114/67 11/03/22 11:58 Pulse Ox 97 11/03/22 11:58 O2 Del Method Room Air 11/03/22 02:20 Pain score (VAS): 11/01 I/O: Intake & Output 11/02/22 11/03/22 11/03/22 23:59 07:59 15:59 Intake Total 1000 300 Output Total 150 Balance 1000 -150 300 Post-procedural complaints: none Patient feedback: Patient satisfied with anesthetic care.
--- NOTE | 2022-11-03 15:22 | PM.OBDSVD ---
DS: Admitting Diagnosis Discharge Date 11/04/2022 Admitting Diagnosis OB - DS: Summary OB Procedures : None OB Procedures Intrapartum: Spontaneous Vag Delivery OB Procedures: : None Time Spent with Patient Time attestation: Total time spent providing and/or coordinating discharge services: DS: Data Data Completed and Pending Labs on day of discharge: Labs from last 24 hours 11/03/22 11/02/22 11/02/22 05:14 16:28 16:28 WBC RBC Hgb 10.6 L Hct 31.9 L MCV MCH MCHC RDW Plt Count MPV Immature Gran % (Auto) Neut % (Auto) Lymph % (Auto) [place] % (Auto) Eos % (Auto) Baso % (Auto) Lymph # (Auto) [place] # (Auto) Eos # (Auto) Baso # (Auto) Abs Immat Gran (auto) Absolute Neuts (auto) Absolute Nucleated RBC Nucleated RBC % RPR Non-reactive Blood Type O Positive Antibody Screen Negative 11/02/22 16:28 WBC 21.7 H RBC 4.30 Hgb 11.6 L Hct 35.5 L MCV 82.6 MCH 27.0 MCHC 32.7 RDW 13.5 Plt Count 285 MPV 10.8 H Immature Gran % (Auto) 0.8 H Neut % (Auto) 80.6 H Lymph % (Auto) 10.7 L [place] % (Auto) 7.1 Eos % (Auto) 0.4 Baso % (Auto) 0.4 Lymph # (Auto) 2.31 [place] # (Auto) 1.5 H Eos # (Auto) 0.1 Baso # (Auto) 0.1 Abs Immat Gran (auto) 0.18 H Absolute Neuts (auto) 17.5 H Absolute Nucleated RBC 0.0 Nucleated RBC % 0.0 RPR Blood Type Antibody Screen Discharge Plan Discharge Discharging Clinician: Randolph Medrano Patient Disposition: Home, Self-Care Activity: as tolerated Diet: as tolerated Patient Instructions: Antibiotic Form Stand Alone Forms: General Discharge Information Follow-up/Referrals: Randolph Medrano MD [Physician] - 3 Weeks Discharge Medications: New ibuprofen 600 mg Tablet 600 mg PO Q6H PRN (Reason: Cramping) Qty: 30 0RF Continued vit-iron fum-folic ac 65 mg iron- 1 mg tablet 1 tablet PO DAILY alprazolam [Xanax] 0.25 mg tablet 0.25 mg PO TID PRN (Reason: anxiety) Qty: 30 0RF Date of admission: 11/02/22 16:15 Primary Care Provider: Raul,Eden Carlos Admitting Provider: Randolph Medrano Attending physician on admission: Randolph Medrano Condition: Stable
--- NOTE | 2022-11-03 15:53 | PC.NURSE ---
[id number] Introductions were made, then consulted with patient to assess needs related to . Mother led the conversation with her?plans to feed?her infant, the?experience so far and is demonstrating pumping the left breast. Resources provided for inpatient and outpatient services with mom/baby guide. Mother voiced understanding of information and requests assistance. had spent sometime in Level 2 nursery with a pacifier with one breastfeed witness downstairs in the nursery. Mother describes the latch as pinchy . Mother works well with her with encouragement and education. Encouraged understanding of the benefits of skin to skin (demonstrating unwrapping and placing upright on her chest), stimulating with massage touch, changing positions to encourage wakefulness, how to watch for early feeding cues, responsive feeding, feeding on demand (aiming for 8-12 times in 24 hours, about every 2-3 hours), milk production, building/maintaining a milk supply, duration of feeding, signs of adequate intake/output and how to record on the feeding sheet. Reviewed positioning and ear, shoulder, hip alignment, supporting the breast to facilitate a deep latch, asymmetrical latch (off-center), leading with the chin with a big, open, wide gape and body close to mother. Repeated attempts were made related to infant latches shallow at times and causes mother some pain. latched optimally to the left breast in football position. Education given to mother of how to visualize suck/swallow ratios and listen for drinking at the breast. was able to maintain latch without discomfort to mother. Nipple care reviewed with optimal latch and good positioning. Reminding mother of comfort measures of healing with a warm and wet washcloth to rinse breast, then leave open to air-dry as needed. Reviewed good handwashing when or touching the breast/nipples to prevent infection. Mother decided to store the 3mls syringe filled colostrum in the refrigerator after dated and labeled. Resources used to facilitate learning were used with the tool, mom and baby guide. Mother voiced understanding of skin to skin, stimulating with massage touch, responsive feedings, hand expressed colostrum, talking to to encourage if it has been 2 -2.5 hours since the start of the last , to call if infant does not latch, or if there is discomfort with . Resources provided for inpatient/outpatient mom/baby guide. Mother voiced understanding of information, demonstrated learning and will call if there is a request for assistance. Reported to the primary RN. [id number] Mother breastfed for 30 minutes with no pain and no misshaped nipple. Multiple attempts were made to latch infant to the right breast using football and cross cradle. Infant latches sometimes with the tongue down. pulls the large tongue up and curls tongue to latch. Mother states that sometimes the latch feels pinchy and other times not so much. Discouraged pacifier use while teaching to latch to the breast. Watching, waiting and encouraging infant to open wide with tongue down for a effective latch. was unable to latch effectively to the right breast at this time. Encouraged practicing the benefits of skin to skin (demonstrating unwrapping and placing upright on her chest), stimulating with massage touch, changing positions to encourage wakefulness, how to watch for early feeding cues, responsive feeding, feeding on demand (aiming for 8-12 times in 24 hours, about every 2-3 hours), milk production, building/maintaining a milk supply, duration of feeding, signs of adequate intake/output, pumping consistently if there's no effective latching and how to record on the feeding sheet. Mother voiced understanding the information, to call out if infant doesn't latch or if the latch is painful. Reported to the Primary RN.
[2022-11-04] MEDS: MULTIVIT/MIN/PREN/FOL AC/IRON TABLET 1 TAB PO (08:08)
[2022-11-04] MEDS: DOCUSATE SODIUM 100 MG CAPSULE PO (08:08)
[2022-11-04] MEDS: IBUPROFEN 600 MG TABLET PO (08:08)
[2022-11-04 08:30] VITALS: BP 106/62; PULSE 84; RESP 18; TEMP 36.4; O2SAT 100
[2022-11-04] MEDS: ACETAMINOPHEN 325 MG TABLET 650 MG PO (14:24)
--- NOTE | 2022-11-04 14:29 | PC.NURSE ---
[id number] Consulted with patient regarding her desire of how she wants to feed her . Primary RN reported mother bottle fed last night with no pumping. Reviewed consistent pumping for milk production pumping 8 times in 24 hours with 1-2 pumping sessions at night. consult was offered for practicing today if she requests. Mother led the conversation with her experience and at this time she will pump and feed. Mother is feeding appropriately for growth of and understands stimulating infant to eat if needed. Infant has had appropriate feedings in the last 24 hours meets the outcomes for weight, output and jaundice at this time. Mother states she is confident to continue to feed her infant at home, when to call for assistance and denies any additional assistance or education at this time. Reinforced understanding of milk production, transition of milk, signs of adequate intake, transition of stool, prevention/relief of engorgement, responsive watching for feeding cues, stimulating to breastfeed/feed 3 hours after the start of the last feeding (pumping breast if doesn't breastfeed for milk production), community resources, medication information reviewed per [facility] and when to call a provider using the resource of the mom and baby guide. Mother voiced understanding of the education shared.
--- NOTE | 2022-11-04 17:36 | PC.NURSE ---
1600 Patient was given the opportunity to view the discharge video Mother & Baby Care, The First Two Weeks and to ask questions. Patient declined viewing the video and has been given the mother/baby guide for home reference. Stated she will view it at home.
== END 2022-11-04 17:25 | disposition home or self-care (01) | DRG 560 ==
LOC: ANHLDR 16:23 → ANHOB2 11-03 02:00
PROVIDERS: Student in an Organized Health Care Education/Training Program; Admitting Provider Obstetrics & Gynecology; PCP Physician Assistant; Visit Provider Obstetrics & Gynecology
DX: O62.3 Precipitate labor (principal); O76 Abnormality in fetal heart rate and rhythm complicating labor and delivery; Z3A.39 39 weeks gestation of pregnancy; Z37.0 Single live birth
CPT/HCPCS: 36415; 85014; 85018; 85025; 86592; 86850; 86900; 86901; A9270; J2370; J2590; J2795; J7120

== ENCOUNTER 2023-01-02 07:22 | Outpatient (CLI) | payer OTHER, SELFPAY ==
[2023-01-02 08:21] LABS: Beta HCG Quantitative < 2.39 mIU/ML
== END 2023-01-02 07:23 | disposition home or self-care (01) ==
LOC: ANHLAB 07:23
PROVIDERS: PCP Physician Assistant; Visit Provider Student in an Organized Health Care Education/Training Program
DX: N92.6 Irregular menstruation, unspecified (principal)
CPT/HCPCS: 36415; 84702

== ENCOUNTER 2024-01-24 08:27 | Outpatient (CLI) | payer OTHER, SELFPAY ==
[2024-01-24 09:19] LABS: Alanine Aminotransferase 17 U/L (6-35); Albumin Level 4.2 g/dL (3.5-5.1); Alkaline Phosphatase 79 U/L (38-126); Amylase 65 U/L (30-110); Aspartate Amino Transferase 33 U/L (14-36); Bilirubin,Total 0.7 mg/dL (0.2-1.3); Lipase 26 U/L (23-300)
== END 2024-01-24 08:28 | disposition home or self-care (01) ==
PROVIDERS: PCP Physician Assistant; Visit Provider Surgery
DX: Z01.818 Encounter for other preprocedural examination (principal); K80.20 Calculus of gallbladder without cholecystitis without obstruction
CPT/HCPCS: 36415; 80076; 82150; 83690

== ENCOUNTER 2024-01-26 01:45 | Day surgery (SDC) | payer OTHER, SELFPAY ==
[2024-01-17 10:22] VITALS: BMI 29.9
--- NOTE | 2024-01-17 10:26 | PC.NURSE ---
Report to the Outpatient Waiting Room, entrance under the green pavilion located off [facility], at time 11:00 on date 01/26/24. Planned Procedure Time: 1:00. Time changes happen often and if your time is changed the preop area will call you the afternoon before. - You and your visitor will be asked to self-screen and do not enter if you have any COVID symptoms. - A mask is optional within the hospital at this time. Patients may have clear liquids (water, carbonated beverages, clear teas, apple juice) until 3 hours prior to surgery with a maximum of 20 ounces. - No food from midnight until time of surgery Take the following medications with a SIP of water the morning of surgery: NONE DO NOT STOP ANY OF YOUR OTHER PRESCRIPTION MEDICATIONS PRIOR TO SURGERY ?EXCEPT THE FOLLOWING Medications to discontinue per physician: N/A Date to take last dose: N/A Please no make-up, nail thai, hairspray, perfume, deodorant, or body powder the day of surgery. No jewelry (including any body piercings) or valuables the day of surgery, leave them at home. Please take a shower or bath the night before, or the morning of, surgery with an antibacterial soap. Wear comfortable, loose fitting clothing. - Jewelry must be removed prior to entering the operating room. Rings and piercings that are not removed may be cut off. - The hospital will not accept responsibility for valuables. - Please leave all valuables, including medications, at home the day of surgery. If you are going home after surgery, a licensed paratransit driver must drive you home. - NO public transportation without another adult if you receive anesthesia. - We recommend that an adult stay with you for 24 hours following discharge. - We also recommend that you do not drive, make important decision, drink alcoholic beverages, or take any drugs that were not prescribed by your health care provider for at least 24 hours after your discharge time. Follow any additional instructions given to you from your surgeon. If you or anyone in your household have experienced Covid symptoms in the past week, please notify your surgeon or the nurse liaison at the phone number below for possible testing. Telephone instructions given to BRAULIO BEVERLY and asked if any additional questions and then verbalized understanding. Patient advised to call surgeon office or pre surgery nurse liaison [phone] if any additional questions.
[2024-01-26] VITALS (10 sets, daily range): BP systolic 100–138; BP diastolic 49–91; PULSE 58–92; RESP 10–24; TEMP 36.2–36.9; O2SAT 98–100
[2024-01-26] MEDS: ACETAMINOPHEN 500 MG TABLET 1000 MG PO (10:09)
[2024-01-26] MEDS: LACTATED RINGERS 1,000 ML 30 ML IV CONT ×2 (10:40→12:52)
[2024-01-26] MEDS: KETOROLAC 15 MG/ML VIAL (*BKC) IV PUSH ×2 (10:41→15:02)
--- NOTE | 2024-01-26 11:03 | WPDANESEPPF ---
Anes - Initial Pre Proc Eval Procedure: Operation Date: 01/26/24 12:00 Proposed Procedures p Laparoscopic Cholecystectomy, Possible Open - Yamil Quintana DO Date/Time: 01/26/24 11:03 Surgeon: Yamil Quintana DO Pre Op Diagnosis: Sym Cholelithiasis Patient Data Age: 28 Gender: F Height: 1.65 m Weight: 79 kg Last Vital Signs Temp 98.4 F 01/26/24 10:19 Pulse 85 01/26/24 10:19 Resp 16 01/26/24 10:19 BP 117/62 01/26/24 10:19 Pulse Ox 100 01/26/24 10:19 O2 Del Method Room Air 01/26/24 10:19 Allergies Allergy/AdvReac Type Severity Reaction Status Date / Time No Known Allergies Allergy Unknown Verified 01/26/24 10:08 Home Medications Medication Instructions Recorded Confirmed Type etonogestrel 68 mg subdermal 1 implant subdermal ONCE 05/02/23 01/17/24 History implant (Nexplanon) Patient hx anesthesia problems: none Family hx anesthesia problems: none Results Review: All pre-operative results and documents have been reviewed as part of the pre-operative evaluation. [facility] Past Medical History Medical History Anxiety Bipolar 1 disorder Chlamydia Depression Depression Encounter for IUD insertion 03/18/20 Paragard insertion Encounter for IUD removal 03/25/21 Paragard removal GERD (gastroesophageal reflux disease) Irregular periods/menstrual cycles Marijuana use Nexplanon insertion 10/04/19 Nexplanon insertion Nexplanon insertion 01/03/2023 Nexplanon removal 01/01/20 Nexplanon removal Strep pharyngitis Suppression of menstruation Family History Family History Mother No problems noted. Grandparent Breast cancer maternal grandmother Other Breast cancer maternal aunt Social History Social History (Updated 07/06/23 @ 14:21 by Madelyn Nugent MA) Smoking status: Former smoker Tobacco type: cigarettes Second hand tobacco smoke exposure: Yes Smoking end date: 10/23/22 Additional smoking assessment comments: FORMER SOCIAL SMOKER Alcohol intake: current Drinks per week: 1 Substance use: current Substance use type: marijuana Last use: 02/20/2022 Lack of Transportation: No Lack of Food: Never True Current Housing: I Have Housing Concerned About Future Housing: No Difficulty Paying Gas/Electric Bills: No Difficulty Paying for Meds: No Currently Unemployed: No Education: High School Diploma/GED Difficulty w/ Childcare or Family Care: No Living arrangements: with family Occupation/Education: occupation 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 Gender identity (if verbalized by the patient): Female Sexual Orientation (if Verbalized by the Patient): Straight or Heterosexual Spiritual care concerns: No Anes - Eval Final PreProcedure Day of Procedure 01/26/24 11:03 Patient weight: overweight Heart: regular rate and rhythm Lungs: clear to auscultation Airway: Mallampati scale Neurological: alert and oriented Last oral intake: >/= 8 hours ASA classification: II Emergent: no Anesthetic plan: proceed Anesthesia type and monitoring: general and standard monitoring Results Review: All pre-operative results and documents have been reviewed as part of the pre-operative evaluation. Informed Consent: The patient's anesthetic plan and its attendant risks and benefits were discussed with the patient/family/POA. Questions were solicited and answers provided to the satisfaction of the patient/family/POA.
--- NOTE | 2024-01-26 11:43 | PM.IMHP ---
H&P: HPI History of Present Illness Date/Time: 01/26/24 11:43 Chief Complaint: symptomatic cholelithiasis Narrative: 28 yo woman presents for lap raghav. She reports not significant changes since last seen in office. Review of Systems Review of Systems: All systems reviewed & are unremarkable except as noted in HPI and below Constitutional: Constitutional: Denies chills, Denies fever(s), Denies headache(s) and Denies weight loss Eyes: Eyes: Denies change in vision ENT: Denies dizziness, Denies headache(s), Denies neck mass and Denies throat swelling Cardiovascular: Cardiovascular: Denies chest pain, Denies lightheadedness and Denies dyspnea Respiratory: Respiratory: Denies cough, Denies dyspnea and Denies wheezing Gastrointestinal: Gastrointestinal: Denies abdominal pain, Denies change in bowel habits, Denies nausea and Denies vomiting Genitourinary: Genitourinary: Denies hematuria and Denies dysuria Musculoskeletal: Musculoskeletal: Reports as per HPI Integumentary/Breasts: Skin/Breast: Reports as per HPI Neurologic: Denies dizziness and Denies headache(s) Allergic/Immunologic: Allergic/Immunologic: Denies throat swelling and Denies wheezing PMF Past Medical History Medical History Anxiety Bipolar 1 disorder Chlamydia Depression Depression Encounter for IUD insertion 03/18/20 Paragard insertion Encounter for IUD removal 03/25/21 Paragard removal GERD (gastroesophageal reflux disease) Irregular periods/menstrual cycles Marijuana use Nexplanon insertion 10/04/19 Nexplanon insertion Nexplanon insertion 01/03/2023 Nexplanon removal 01/01/20 Nexplanon removal Strep pharyngitis Suppression of menstruation Family History Family History Mother No problems noted. Grandparent Breast cancer maternal grandmother Other Breast cancer maternal aunt Social History Social History (Updated 07/06/23 @ 14:21 by Madelyn Nugent MA) Smoking status: Former smoker Tobacco type: cigarettes Second hand tobacco smoke exposure: Yes Smoking end date: 10/23/22 Additional smoking assessment comments: FORMER SOCIAL SMOKER Alcohol intake: current Drinks per week: 1 Substance use: current Substance use type: marijuana Last use: 02/20/2022 Lack of Transportation: No Lack of Food: Never True Current Housing: I Have Housing Concerned About Future Housing: No Difficulty Paying Gas/Electric Bills: No Difficulty Paying for Meds: No Currently Unemployed: No Education: High School Diploma/GED Difficulty w/ Childcare or Family Care: No Living arrangements: with family Occupation/Education: occupation 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 Gender identity (if verbalized by the patient): Female Sexual Orientation (if Verbalized by the Patient): Straight or Heterosexual Spiritual care concerns: No Meds Home Medications and Allergies Home Medications Medication Instructions Recorded Confirmed Type etonogestrel 68 mg subdermal 1 implant subdermal ONCE 05/02/23 01/17/24 History implant (Nexplanon) Allergies Allergy/AdvReac Type Severity Reaction Status Date / Time No Known Allergies Allergy Unknown Verified 01/26/24 10:08 Vital Signs Vital Signs - 24 hr 01/26/24 10:19 Temperature 36.9 C Pulse Rate 85 Respiratory Rate 16 Blood Pressure 117/62 Pulse Oximetry 100 Oxygen Delivery Room Air Exam Const: General: no acute distress and alert Orientation/consciousness: patient oriented x3 HENMT: Head: normocephalic and atraumatic Ears: hearing grossly normal bilaterally Face/Nose/Sinus: Normal nares present Mouth: Yes Normal oral and palatal mucosa present Eyes: Periorbital: periorbital findings normal Sclera: sclerae normal EOM: EOMs intact bilaterally Neck: Neck: normal visual inspection, no ly
--- NOTE | 2024-01-26 11:45 | WPDHPUPDATE1 ---
History and Physical Update Update Date/Time: 01/26/24 11:45 History and Physical has been reviewed, including an updated exam of the patient. There are NO changes in the patient's condition. Risks, benefits, and alternatives have been discussed and questions answered. Patient agrees to proceed with procedure.
[2024-01-26] MEDS: ceFAZolin 2 GM/D5W 50 ML 2 GM/50 ML BAG IVPB (11:59)
[2024-01-26] MEDS: BUPIVACAINE/EPINEPHRINE 0.5% 10 ML VIAL 30 ML INFILTRATE (12:21)
--- NOTE | 2024-01-26 12:51 | W.PM.PROC2 ---
Procedure Note - Detailed Date of Procedure 01/26/24 Pre-op Diagnosis Symptomatic Cholelithiasis Post-op Diagnosis Same Procedure Performed Laparoscopic Cholecystectomy Surgeon Yamil Quintana, DO Anesthesia General and Local (0.5% bupivacaine) Indications This is a 28-year-old woman who presents with intermittent right upper quadrant pain for the past couple years. She had previously had an ultrasound which showed evidence of cholelithiasis. She did not want to proceed with surgery at 1st, but now she is continued to have worsening symptoms and would like to proceed. I discussed treatment options with the patient and decision was made to proceed with laparoscopic cholecystectomy, possible open. Findings Laparoscopic cholecystectomy was performed. The patient's gallbladder contained 2 medium-sized gallstones. The cystic duct appeared normal in size. No other intra-abdominal abnormalities were noted. The gallbladder was removed and sent to the lab for pathology. Description of Procedure Procedure as well as risks, benefits, and alternatives were discussed with patient. Written consent was obtained and placed in chart prior to procedure. The patient was brought back to surgical suite. Patient was placed in supine position on operating table. Time-out was done to confirm patient and procedure. Patient was then intubated by the anesthesia department. Abdomen was prepped and draped in sterile fashion using chlorhexidine prep. 0.5% bupivacaine with epinephrine was infiltrated at each site of incision. An 11 millimeter vertical incision was made at the inferior portion of the umbilicus using a 15 blade scalpel. Blunt dissection was carried down to the linea alba. The linea alba was then incised using a 15 blade scalpel. The peritoneum was then bluntly entered. An 11 millimeter trocar was inserted and carbon dioxide insufflation was used to create a pneumoperitoneum. The camera was inserted and the abdomen was inspected. The patient was placed in reverse Trendelenberg position and rotated slightly to the left. A 5 millimeter incision was made in the epigastric region, and a 5 millimeter trocar was inserted under direct visualization. Two 5 millimeter incisions were made in the right upper quadrant, and two 5 millimeter trocars were inserted under direct visualization. The gallbladder was identified and grasped at the fundus and retracted superiorly. It was then grasped at the infundibulum retracted laterally. Careful dissection around the neck of the gallbladder was performed using blunt dissection with a [place] grasper and hook electrocautery. The cystic duct was identified, and a window was created behind it. The cystic artery was also identified and a window was created behind it. The critical view of safety was identified, visualizing the cystic duct running directly into the neck of the gallbladder, and the cystic artery running directly into the wall of the gallbladder. A 5 millimeter clip product evangelist was then used to place 2 clips proximally and 1 clip distally on both the cystic duct and cystic artery. They were then both transected using endoscopic scissors. Once safely away from the brianna hepatitis, the gallbladder was dissected free from the liver bed using hook electrocautery. Hemostasis was achieved along the way. The gallbladder was removed completely and then removed through the umbilical port. The liver bed was then inspected. Hemostasis appeared adequate, and our clips appeared secure. The area was gently irrigated with sterile saline. No other abnormalities were seen. The patient was flattened out in bed, and 1 final inspection was made around the abdominal cavity. The ports were then removed under direct visualization, the camera was removed, and the pneumoperitoneum was released. The fascia of the umbilical incision was approximated using an 0 Vicryl [id number] suture. The skin of the incisions was approximated using
[2024-01-26] MEDS: ONDANSETRON INJ 4 MG/2 ML VIAL IV PUSH (13:21)
[2024-01-26] MEDS: fentaNYL CITRATE INJ (*CRX) 100 MCG/2 ML VIAL 25 MCG IV PUSH ×3 (13:25→13:41)
[2024-01-26] MEDS: oxyCODONE HCL (*CRX) 5 MG TAB IR PO (14:10)
== END 2024-01-26 15:39 | disposition home or self-care (01) ==
PROVIDERS: PCP Physician Assistant; Visit Provider Surgery
PROC: 0FT44ZZ Resection of Gallbladder, Percutaneous Endoscopic Approach (ICD-10-PCS; CPT 47562; principal; 2024-01-26 12:00)
DX: K80.10 Calculus of gallbladder with chronic cholecystitis without obstruction (principal)
CPT/HCPCS: 47562; 88304; A9270; J0690; J1100; J1170; J1200; J1885; J2250; J2405; J2704; J3010; J7120

== ENCOUNTER 2025-04-04 08:07 | Emergency (ER) | payer OTHER, SELFPAY ==
--- NOTE | 2025-04-04 08:20 | ED_ITS ---
HPI - URI/Sore Throat General Chief Complaint: Upper Respiratory Infection Stated Complaint: sore throat/lost of voice Time Seen by Provider: 04/04/25 08:20 Source: patient, RN notes reviewed and old records reviewed Mode of arrival: ambulatory Limitations: no limitations History of Present Illness HPI Narrative: 29-year-old female presents to the [facility] with 3-4 day history of sore throat, laryngitis. Patient states that she was cleaning out some plaster couple of days ago, was not wearing a mask. Denies any fevers, chest pain. Reports intermittent shortness breath. Treatments prior to arrival: acetaminophen Related Data Home Medications ?Medication ?Instructions ?Recorded ?Confirmed ?Last Taken ?Type etonogestrel 68 mg subdermal 1 implant subdermal ONCE 05/02/23 01/17/24 Unknown History implant (Nexplanon) Allergies Allergy/AdvReac Type Severity Reaction Status Date / Time No Known Allergies Allergy Unknown Verified 04/04/25 08:55 Review of Systems Review of Systems: All systems reviewed & are unremarkable except as noted in HPI and below Constitutional: Constitutional: Reports no additional constitutional complaints ENT: Reports as per HPI and Reports sore throat Cardiovascular: Cardiovascular: Reports no additional cardiovascular complaints, Denies chest pain and Denies dyspnea Respiratory: Respiratory: Reports no additional respiratory complaints, Denies chest congestion, Denies cough and Denies dyspnea Musculoskeletal: Musculoskeletal: Reports no additional musculoskeletal complaints Integumentary/Breasts: Skin/Breast: Reports system reviewed and no additional complaints, except as docu PMFSH Past Medical History Medical History Nexplanon insertion 01/03/2023 Irregular periods/menstrual cycles Marijuana use Depression Bipolar 1 disorder Suppression of menstruation Encounter for IUD removal 03/25/21 Paragard removal Encounter for IUD insertion 03/18/20 Paragard insertion Nexplanon removal 01/01/20 Nexplanon removal Nexplanon insertion 10/04/19 Nexplanon insertion Chlamydia Depression Anxiety GERD (gastroesophageal reflux disease) Strep pharyngitis Family History Family History Mother No problems noted. Grandparent Breast cancer maternal grandmother Other Breast cancer maternal aunt Social History Social History (Reviewed 04/04/25 @ 09:01 by ROBERTO Sullivan Smoking status: Former smoker Tobacco type: cigarettes Second hand tobacco smoke exposure: Yes Smoking end date: 10/23/22 Additional smoking assessment comments: FORMER SOCIAL SMOKER Alcohol intake: current Drinks per week: 1 Substance use: current Substance use type: marijuana Last use: 02/20/2022 Lack of Transportation: No Lack of Food: Never True Current Housing: I Have Housing Concerned About Future Housing: No Difficulty Paying Gas/Electric Bills: No Difficulty Paying for Meds: No Currently Unemployed: No Education: High School Diploma/GED Difficulty w/ Childcare or Family Care: No Living arrangements: with family Occupation/Education: occupation 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 There is no relevant family history pertinent to the patient complaint. Exam Const: General: cooperative, healthy appearing, comfortable, no acute distress, well developed, alert and well nourished Nutritional Appearance: well nourished Orientation/consciousness: patient oriented x3 Limitations: no limitations HENMT: Head: normal to inspection Ears: hearing grossly normal bilaterally, external ears normal, TM's normal bilaterally, EAC's normal, mastoids normal and no periauricular adenopathy Face/Nose/Sinus: Normal external nose present, Normal nasal mucous membranes and turbinates present and No nasal discharge present Mouth: Yes Normal oral and palatal mucosa present, Yes lip normal, Yes tongue normal and Yes moist mucous membranes Throat: posterior oropharynx normal, uvula midline and no uvular edema Eyes: General: appearance normal, both eyes and all related structures Alignment and Position: alignment normal Neck: Neck: normal visual inspection, full ROM, no lymphadenopathy and no meningeal signs Chest: Chest palpation & inspection: normal inspection of the chest Resp: Effort & Inspection: normal respiratory effort and able to speak in complete sentences Auscultation: clear to auscultation bilaterally, no crackles, no rales, no rhonchi and no wheezes Cardio: Rate: regular rate Skin: General skin exam: normal color and no rashes or lesions noted Neuro: General: patient oriented x3, gait normal, moves all extremities and no meningeal signs Cognition (Neuro): normal cognition Speech: normal speech Gait exam (Neuro): Normal gait present Extrem: General: normal to inspection, full ROM, capillary refill normal and normal gait Psych: Appearance: grossly normal and well kempt Mental Status: mental status grossly normal Speech and movement: Normal speech and movement present and Clear speech present Affect: normal affect Attitude: cooperative Course Course Level of Care: Express Care Visit Vital Signs Vital signs: Vital Signs Temperature 97.3 F L 04/04/25 08:23 Pulse Rate 87 04/04/25 08:23 Respiratory Rate 16 04/04/25 08:23 Blood Pressure 121/70 04/04/25 08:23 Pulse Oximetry 99 04/04/25 08:23 Oxygen Delivery Room Air 04/04/25 08:23 Temperature 97.3 F L 04/04/25 08:23 Pulse Rate 87 04/04/25 08:23 Respiratory Rate 16 04/04/25 08:23 Blood Pressure 121/70 04/04/25 08:23 Pulse Oximetry 99 04/04/25 08:23 Oxygen Delivery Room Air 04/04/25 08:23 Reviewed MDM - URI/Sore Throat MDM Narrative Medical decision making narrative: Patient sitting in exam room. Patient is nontoxic, vitals are stable. Patient presents with throat irritation, laryngitis Patient denies concern for strep. Patient most likely irritation from not wearing a mask in cleaning. Patient appropriate for outpatient treatment with close follow Discharge instructions reviewed with patient, as well as provided in writing per nursing staff. The instructions also include specific and strict return/GO TO THE ER as well as f/u information. All questions have been answered, and the patient deny any further questions with discharge and discharge plan. Some parts of this dictation were generated by voice recognition software and may contain typographical and/or grammatical inaccuracies. Differential Diagnosis Differential diagnosis: Likely upper respiratory infection, otitis media, sinusitis, viral infection, bronchitis, influenza and pharyngitis Critical Care Time Critical Care Time Critical Care Time: No Discharge Plan Discharge Clinical Impression: Laryngitis Pharyngitis Qualifiers: Pharyngitis/tonsillitis etiology: unspecified etiology Qualified Code(s): J02.9 - Acute pharyngitis, unspecified Patient Disposition: Home Condition: Stable Instructions: Pharyngitis (ED) Additional Instructions: It is very important to treat your symptoms. Drink plenty of water, Gatorade, Pedialyte, ice pops or Jell-O. -Alternate Tylenol and Motrin per package directions for fever or pain. You can alternate every 4 hours -Antihistamine medication such as Zyrtec/Claritin/Mora during the day can help improve symptoms. -doing daily nasal irrigations can help relieve pressure your sinuses. Things like a Neti pot -Use Flonase twice a day for 5 days then daily to help reduce the inflammation and dry up your sinuses. -You can also use Mucinex. Be sure to drink plenty of water with this medication at least 8 ounces with every dose and it is important to drink 8 to 10 glasses of water per day. Water is a natural decongestant -Eat and drink things that are easy to swallow, like tea or soup, or popsicles. -Oral rinses such as: Salt water gargles and/or may use topical anesthetic (eg. Chloraseptic spray) or lozenges to relieve dryness or throat pain). -Frequent hand washing or hand airframe and powerplant technician is one of the best ways to prevent spread of infection. -Using a vaporizer or humidifier at night will also help thin secretions and help with coughing up phlegm. -Follow up with primary care provider in 7-10 days if condition is not improving - For new or worsening symptoms go directly to the nearest ER Patient Language: Grenadian Prescriptions: New methylprednisolone [Medrol (Ke)] 4 mg tablets,dose pack See Rx Instructions PO .COMPLEX Qty: 21 0RF Rx Instructions: orally per package directions No Action Nexplanon 68 mg implant 1 implant subdermal ONCE Rx Instructions: as a single dose Follow-up/Referrals: PHYSICIAN,[facility] [Primary Care Provider] - Stand Alone Forms: Work/School Release IP Time of Disposition: 08:34
[2025-04-04 08:23] VITALS: BP 121/70; PULSE 87; RESP 16; TEMP 36.3; O2SAT 99
== END 2025-04-04 08:42 | disposition home or self-care (01) ==
PROVIDERS: Emergency Provider Nurse Practitioner
DX: J04.0 Acute laryngitis (principal); J02.9 Acute pharyngitis, unspecified; Z87.891 Personal history of nicotine dependence; K21.9 Gastro-esophageal reflux disease without esophagitis
CPT/HCPCS: 99213; G0463